=== PATIENT | male | born 1955 ===

== ENCOUNTER 2017-10-06 11:56 | Inpatient (IN) | payer MEDICARE ==
[~2017-10-06] VITALS: Ht 182.9 cm; Wt 124.9 kg
[2017-10-06] MEDS ORDERED: NALOXONE HCL 1MG/ML 2ML SYRINGE ONE (12:15)
[2017-10-06] MEDS ORDERED: SUCCINYLCHOLINE CHLORIDE 20 MG/ML 10ML VIAL IV ONE ×4 (12:19→14:15)
[2017-10-06] MEDS ORDERED: ETOMIDATE (2MG/ML) 20ML VIAL IV ONE ×4 (12:19→14:15)
[2017-10-06] MEDS ORDERED: MIDAZOLAM DRIP 50 mg/50mL 50 ML IV ONE (12:22)
[2017-10-06] MEDS ORDERED: NOREPINEPHRINE 16 MG/500ML KIT 500 ML IV ONE (12:23)
[2017-10-06] MEDS: MIDAZOLAM DRIP 50 mg/50mL 50 ML IV SCH ×2 (12:35→15:30)
[2017-10-06] MEDS ORDERED: PROPOFOL 100 ML IV ONE (12:44)
[2017-10-06] MEDS: PROPOFOL 100 ML IV SCH (12:49)
[2017-10-06] MEDS ORDERED: SODIUM CHLORIDE 0.9% 1,000 ML IV ONE ×3 (13:03→14:58)
[2017-10-06] MEDS ORDERED: cefTRIAXone 1GM/10ml IVPUSH 10 ML IV ONE (13:15)
[2017-10-06] MEDS ORDERED: CLINDAMYCIN 900MG IV 50 ML IV ONE (13:15)
[2017-10-06 13:43] LABS: Basophils # (auto) 0 uL; Basophils % (auto) 0.3 % (0.0-2.0); Eosinophils # (auto) 0 uL; Hematocrit 52.9 % (41.0-53.0); Hemoglobin 17.6 g/dL (13.5-17.5); Lymphocytes % (auto) 6.1 % (10.0-50.0); Mean Corpuscular Hgb Conc. 33.2 g/dL (32.0-36.0); Mean Corpuscular Volume 90.4 fL (80.0-100.0); Monocytes # (auto) 1.8 uL; Neutrophils # (auto) 13.8 uL; Neutrophils % (auto) 82.6 % (37.0-80.0); Platelet Count (auto) 263 10^3/uL (140-450); Red Blood Cells 5.86 10^6/uL (4.5-5.90); Red Cell Distribution Width 13.8 % (11.8-14.3); White Blood Cell 16.7 10^3/uL (4.4-10.8)
[2017-10-06 13:53] LABS: INR 1.12 (0.9-1.15); Partial Thromboplastin Time 28.3 sec (22.64-33.71); Prothrombin Time 12.2 sec (9.37-12.3)
[2017-10-06 14:03] LABS: Albumin 3.5 g/dL (3.4-5.0); BUN/Creatinine Ratio 12.2; Bilirubin, Total 0.7 mg/dL (0.2-1.0); Calcium 9.3 mg/dL (8.5-10.1); Lactic Acid w/Reflex 6.4 mmol/L (0.4-2.0); Potassium 5.1 mmol/L (3.5-5.1); Total Protein 8.2 g/dL (6.4-8.2)
[2017-10-06] MEDS ORDERED: LACTULOSE 20Gm/30ML SOLN PO PRN (15:30)
[2017-10-06] MEDS ORDERED: LACTULOSE 20Gm/30ML SOLN NG PRN (15:30)
[2017-10-06] MEDS ORDERED: PIPERACILLIN-TAZOB 2.25GM 50 ML IV ONE (15:30)
[2017-10-06] MEDS ORDERED: ALBUTEROL SULF 2.5 MG/0.5ML(0.5%) NEB SOLN NEB PRN (15:30)
[2017-10-06] MEDS ORDERED: MORPHINE SULFATE 8mg/ml INJ SDV IV PRN ×2 (15:30)
[2017-10-06] MEDS ORDERED: LORazepam 2MG/ML-1ML VIAL IV PRN ×2 (15:30→17:45)
[2017-10-06] MEDS ORDERED: NITROGLYCERIN 0.4 MG SL TAB SL PRN (15:30)
[2017-10-06] MEDS ORDERED: NALOXONE HCL 1MG/ML 2ML SYRINGE IV ONE (15:45)
[2017-10-06 16:25] LABS: Folate (Folic Acid) 5.91 ng/mL (5.38-24)
[2017-10-06] MEDS ORDERED: MORP60TA25 PO (16:25)
[2017-10-06] MEDS ORDERED: METO25TA62 PO (16:25)
[2017-10-06] MEDS ORDERED: AML5T PO (16:25)
[2017-10-06] MEDS ORDERED: MORP30TA PO (16:25)
[2017-10-06] MEDS: SODIUM CHLORIDE 0.9% 1,000 ML IV SCH (16:38)
[2017-10-06] MEDS: AZITHROMYCIN 500MG/ 250ML 250 ML IV SCH (18:09)
[2017-10-06 18:24] VITALS: BP 116/56
[2017-10-06] MEDS: ALBUTEROL SULF 2.5 MG/0.5ML(0.5%) NEB SOLN NEB SCH (18:30)
[2017-10-06] MEDS: IPRATROPIUM BROM 0.5 MG/2.5ML INH SOL NEB SCH (18:31)
[2017-10-06 18:32] LABS: Cholesterol 148 mg/dL (< 200); HDL Cholesterol 41 mg/dL (40-59); LDL Cholesterol 95 mg/dL (< 100); Triglycerides 250 mg/dL (< 150)
[2017-10-06 19:37] VITALS: BP 113/78
[2017-10-06] MEDS ORDERED: ACETAMINOPHEN 650 mg PER 20 mL UD GT ONE (19:45)
[2017-10-06] MEDS: LINEZOLID 600MG/300ML 300 ML IV SCH (20:00)
[2017-10-06 20:07] LABS: Alcohol, Urine < 3.0 mg/dL (0-5); Amphetamine Screen, Urine NEGATIVE (NEGATIVE); Barbiturate Scree,Urine NEGATIVE (NEGATIVE); Benzodiazephine Screen, Urine POSITIVE (NEGATIVE); Cannabinoid Screen, Urine POSITIVE (NEGATIVE); Cocaine Screen, Urine NEGATIVE (NEGATIVE); Opiate Scree,Urine POSITIVE (NEGATIVE); Phencyclidine Screen, Urine NEGATIVE (NEGATIVE)
[2017-10-06 20:10] LABS: Urine Bacteria FEW /hpf (None Seen); Urine Blood 2+ /uL (Negative); Urine Hyaline Cast FEW /lpf (0 - 2); Urine Mucus FEW (None Seen); Urine Specific Gravity 1.022 (1.001-1.035); Urine WBC 14 /hpf (0 - 3)
[2017-10-06 20:26] VITALS: BP 125/90
[2017-10-06] MEDS ORDERED: ENOXAPARIN SOD 120 MG/0.8 ML SYRINGE SC ONE (20:30)
[2017-10-06] MEDS: PIPERACILLIN-TAZOB 2.25GM 50 ML IV SCH (22:00)
[2017-10-06 22:36] VITALS: BP 120/79
[2017-10-07] VITALS (12 sets, daily range): BP systolic 101–158; BP diastolic 54–112
[2017-10-07] MEDS: IPRATROPIUM BROM 0.5 MG/2.5ML INH SOL NEB SCH ×4 (00:31→18:10)
[2017-10-07] MEDS: ALBUTEROL SULF 2.5 MG/0.5ML(0.5%) NEB SOLN NEB SCH ×4 (00:31→18:10)
[2017-10-07] MEDS: SODIUM CHLORIDE 0.9% 1,000 ML IV SCH ×2 (02:15→11:54)
[2017-10-07] MEDS: MORPHINE SULFATE 8mg/ml INJ SDV IV PRN ×2 (02:16→12:32)
[2017-10-07] MEDS: PIPERACILLIN-TAZOB 2.25GM 50 ML IV SCH ×4 (04:11→21:22)
[2017-10-07] MEDS ORDERED: IBUPROFEN 100MG/5ML ORAL SUSP 100 MG/5 ML UD GT ONE (05:45)
[2017-10-07] MEDS ORDERED: ACETAMINOPHEN 650 mg PER 20 mL UD GT ONE (06:00)
[2017-10-07 06:59] LABS: Basophils # (auto) 0.2 uL; Basophils % (auto) 1.4 % (0.0-2.0); Eosinophils # (auto) 0 uL; Eosinophils % (auto) 0.1 % (0.0-7.0); Lymphocytes # (auto) 1.5 uL; Lymphocytes % (auto) 10.7 % (10.0-50.0); Mean Corpuscular Hemoglobin 30.2 pg (28.0-32.0); Mean Corpuscular Hgb Conc. 33.9 g/dL (32.0-36.0); Monocytes # (auto) 1.3 uL; Monocytes % (auto) 8.9 % (0.0-12.0); Neutrophils # (auto) 11.4 uL; Neutrophils % (auto) 78.9 % (37.0-80.0); Platelet Count (auto) 212 10^3/uL (140-450); Red Blood Cells 5.28 10^6/uL (4.5-5.90); Red Cell Distribution Width 13.7 % (11.8-14.3); White Blood Cell 14.5 10^3/uL (4.4-10.8)
[2017-10-07 07:27] LABS: Albumin 2.9 g/dL (3.4-5.0); BUN/Creatinine Ratio 16.9; Bilirubin, Total 0.8 mg/dL (0.2-1.0); Calcium 9.2 mg/dL (8.5-10.1); Total Protein 6.7 g/dL (6.4-8.2)
[2017-10-07] MEDS: LINEZOLID 600MG/300ML 300 ML IV SCH ×2 (08:03→19:48)
[2017-10-07] MEDS: ENOXAPARIN SOD 40 MG/0.4 ML SYRINGE SC SCH (09:27)
[2017-10-07] MEDS: PANTOPRAZOLE 40 MG/10 ML VIAL IV SCH (09:27)
[2017-10-07] MEDS: ASPirin 81 mg TAB PEG SCH (09:44)
[2017-10-07] MEDS ORDERED: ENALAPRIL MALEATE 2.5 MG TAB NG SCH (10:00)
[2017-10-07] MEDS: PROPOFOL 100 ML IV SCH (12:28)
[2017-10-07] MEDS ORDERED: PIPERACILLIN-TAZOB 3.375GM 100 ML IV SCH (17:45)
[2017-10-07] MEDS: AZITHROMYCIN 500MG/ 250ML 250 ML IV SCH (18:13)
[2017-10-07] MEDS: PIPERACILLIN-TAZOB 3.375GM 100 ML IV SCH (21:29)
[2017-10-08] VITALS (54 sets, daily range): BP systolic 100–190; BP diastolic 59–101
[2017-10-08] MEDS: PIPERACILLIN-TAZOB 2.25GM 50 ML IV SCH (00:51)
[2017-10-08] MEDS: SODIUM CHLORIDE 0.9% 1,000 ML IV SCH ×3 (01:07→18:14)
[2017-10-08] MEDS ORDERED: ACETAMINOPHEN 650 mg PER 20 mL UD ONE (01:27)
[2017-10-08] MEDS ORDERED: ACETAMINOPHEN 650 mg PER 20 mL UD GT ONE (01:30)
[2017-10-08] MEDS: PIPERACILLIN-TAZOB 3.375GM 100 ML IV SCH ×4 (03:40→21:20)
[2017-10-08 05:22] LABS: Basophils # (auto) 0.1 uL; Basophils % (auto) 0.4 % (0.0-2.0); Eosinophils # (auto) 0 uL; Eosinophils % (auto) 0.2 % (0.0-7.0); Hematocrit 43.6 % (41.0-53.0); Hemoglobin 14.8 g/dL (13.5-17.5); Lymphocytes # (auto) 1.2 uL; Lymphocytes % (auto) 8.9 % (10.0-50.0); Mean Corpuscular Hemoglobin 30.3 pg (28.0-32.0); Mean Corpuscular Hgb Conc. 33.9 g/dL (32.0-36.0); Mean Corpuscular Volume 89.2 fL (80.0-100.0); Monocytes # (auto) 1.3 uL; Monocytes % (auto) 10.1 % (0.0-12.0); Neutrophils # (auto) 10.6 uL; Neutrophils % (auto) 80.4 % (37.0-80.0); Nucleated Red Blood Cells % 0.1 %; Platelet Count (auto) 214 10^3/uL (140-450); Red Blood Cells 4.89 10^6/uL (4.5-5.90); Red Cell Distribution Width 13.4 % (11.8-14.3); White Blood Cell 13.2 10^3/uL (4.4-10.8)
[2017-10-08 05:40] LABS: BUN/Creatinine Ratio 14.4; Potassium 3.9 mmol/L (3.5-5.1)
[2017-10-08] MEDS: ALBUTEROL SULF 2.5 MG/0.5ML(0.5%) NEB SOLN NEB SCH ×3 (06:00→18:27)
[2017-10-08] MEDS: IPRATROPIUM BROM 0.5 MG/2.5ML INH SOL NEB SCH ×3 (06:00→18:27)
[2017-10-08] MEDS: ASPirin 81 mg TAB PEG SCH (09:59)
[2017-10-08] MEDS: PANTOPRAZOLE 40 MG/10 ML VIAL IV SCH (09:59)
[2017-10-08] MEDS: ENOXAPARIN SOD 40 MG/0.4 ML SYRINGE SC SCH (09:59)
[2017-10-08] MEDS: MIDAZOLAM DRIP 50 mg/50mL 50 ML IV SCH ×3 (13:23→22:48)
[2017-10-08] MEDS: PROPOFOL 100 ML IV SCH (14:04)
[2017-10-08] MEDS: MORPHINE SULFATE 8mg/ml INJ SDV IV PRN (22:48)
[2017-10-09] VITALS (102 sets, daily range): BP systolic 115–182; BP diastolic 59–114
[2017-10-09] MEDS: IPRATROPIUM BROM 0.5 MG/2.5ML INH SOL NEB SCH ×4 (00:21→18:45)
[2017-10-09] MEDS: ALBUTEROL SULF 2.5 MG/0.5ML(0.5%) NEB SOLN NEB SCH ×4 (00:21→18:45)
[2017-10-09] MEDS: hydrALAZINE HCL 20 MG/ML VL IV PRN ×3 (00:50→14:39)
[2017-10-09] MEDS: MORPHINE SULFATE 8mg/ml INJ SDV IV PRN (03:11)
[2017-10-09] MEDS ORDERED: ENALAPRILAT 1.25 MG/ML-1ML VIAL IV ONE (03:30)
[2017-10-09 03:34] LABS: Basophils # (auto) 0.1 uL; Basophils % (auto) 0.6 % (0.0-2.0); Eosinophils # (auto) 0 uL; Eosinophils % (auto) 0.3 % (0.0-7.0); Hematocrit 44.3 % (41.0-53.0); Hemoglobin 15.1 g/dL (13.5-17.5); Lymphocytes # (auto) 1.5 uL; Lymphocytes % (auto) 12.7 % (10.0-50.0); Mean Corpuscular Hemoglobin 30.4 pg (28.0-32.0); Mean Corpuscular Hgb Conc. 34.2 g/dL (32.0-36.0); Mean Corpuscular Volume 88.8 fL (80.0-100.0); Monocytes # (auto) 1.3 uL; Neutrophils # (auto) 8.9 uL; Neutrophils % (auto) 75.4 % (37.0-80.0); Platelet Count (auto) 187 10^3/uL (140-450); Red Blood Cells 4.99 10^6/uL (4.5-5.90); Red Cell Distribution Width 13.6 % (11.8-14.3); White Blood Cell 11.7 10^3/uL (4.4-10.8)
[2017-10-09] MEDS: PIPERACILLIN-TAZOB 3.375GM 100 ML IV SCH ×4 (03:39→22:00)
[2017-10-09 03:45] LABS: BUN/Creatinine Ratio 15.5; Calcium 8.8 mg/dL (8.5-10.1); Potassium 3.9 mmol/L (3.5-5.1)
[2017-10-09] MEDS: SODIUM CHLORIDE 0.9% 1,000 ML IV SCH ×2 (04:15→10:06)
[2017-10-09] MEDS ORDERED: hydrALAZINE HCL 20 MG/ML VL IV SCH (06:00)
[2017-10-09] MEDS: fentaNYL Drip 2500mCg/250mlNS 250 ML IV SCH ×2 (07:35→10:42)
[2017-10-09] MEDS: PROPOFOL 100 ML IV SCH (08:38)
[2017-10-09] MEDS: METOPROLOL TARTRATE 25 MG TAB PO SCH ×2 (10:00→22:00)
[2017-10-09] MEDS: PANTOPRAZOLE 40 MG/10 ML VIAL IV SCH (10:05)
[2017-10-09] MEDS: MIDAZOLAM DRIP 50 mg/50mL 50 ML IV SCH ×2 (10:05→15:16)
[2017-10-09] MEDS: ASPirin 81 mg TAB PEG SCH (10:05)
[2017-10-09] MEDS: ENOXAPARIN SOD 40 MG/0.4 ML SYRINGE SC SCH (10:05)
[2017-10-09] MEDS ORDERED: Fibersource Hn 1 Liter GT SCH (12:15)
[2017-10-09] MEDS: ATORVASTATIN 20 MG TAB PO SCH (22:00)
[2017-10-10] VITALS (100 sets, daily range): BP systolic 115–180; BP diastolic 66–114
[2017-10-10] MEDS: SODIUM CHLORIDE 0.9% 1,000 ML IV SCH ×3 (00:15→20:15)
[2017-10-10] MEDS: ALBUTEROL SULF 2.5 MG/0.5ML(0.5%) NEB SOLN NEB SCH ×4 (00:32→18:48)
[2017-10-10] MEDS: IPRATROPIUM BROM 0.5 MG/2.5ML INH SOL NEB SCH ×4 (00:32→18:47)
[2017-10-10 03:55] LABS: Basophils # (auto) 0.1 uL; Basophils % (auto) 0.6 % (0.0-2.0); Eosinophils # (auto) 0.1 uL; Eosinophils % (auto) 1.2 % (0.0-7.0); Hematocrit 46.5 % (41.0-53.0); Hemoglobin 15.7 g/dL (13.5-17.5); Lymphocytes # (auto) 1.2 uL; Mean Corpuscular Hemoglobin 30.1 pg (28.0-32.0); Mean Corpuscular Hgb Conc. 33.8 g/dL (32.0-36.0); Mean Corpuscular Volume 89.1 fL (80.0-100.0); Monocytes # (auto) 1.3 uL; Monocytes % (auto) 13.7 % (0.0-12.0); Neutrophils # (auto) 7.1 uL; Neutrophils % (auto) 72.5 % (37.0-80.0); Nucleated Red Blood Cells % 0.2 %; Platelet Count (auto) 226 10^3/uL (140-450); Red Blood Cells 5.22 10^6/uL (4.5-5.90); Red Cell Distribution Width 13.3 % (11.8-14.3); White Blood Cell 9.8 10^3/uL (4.4-10.8)
[2017-10-10 03:57] LABS: BUN/Creatinine Ratio 17.6; Potassium 3.7 mmol/L (3.5-5.1)
[2017-10-10] MEDS: PIPERACILLIN-TAZOB 3.375GM 100 ML IV SCH ×4 (04:00→22:00)
[2017-10-10] MEDS: MIDAZOLAM DRIP 50 mg/50mL 50 ML IV SCH ×3 (06:36→22:41)
[2017-10-10] MEDS: PANTOPRAZOLE 40 MG/10 ML VIAL IV SCH (10:37)
[2017-10-10] MEDS: ASPirin 81 mg TAB PEG SCH (10:37)
[2017-10-10] MEDS: METOPROLOL TARTRATE 25 MG TAB PO SCH ×3 (10:38→23:00)
[2017-10-10] MEDS: ENOXAPARIN SOD 40 MG/0.4 ML SYRINGE SC SCH (10:38)
[2017-10-10] MEDS: PROPOFOL 100 ML IV SCH (14:04)
[2017-10-10] MEDS: fentaNYL Drip 2500mCg/250mlNS 250 ML IV SCH (16:31)
[2017-10-10] MEDS: ATORVASTATIN 20 MG TAB PO SCH (22:00)
[2017-10-11] VITALS (101 sets, daily range): BP systolic 110–163; BP diastolic 61–125
[2017-10-11] MEDS: IPRATROPIUM BROM 0.5 MG/2.5ML INH SOL NEB SCH ×5 (00:21→23:57)
[2017-10-11] MEDS: ALBUTEROL SULF 2.5 MG/0.5ML(0.5%) NEB SOLN NEB SCH ×5 (00:21→23:57)
[2017-10-11] MEDS: MIDAZOLAM DRIP 50 mg/50mL 50 ML IV SCH ×2 (01:44→01:45)
[2017-10-11 03:51] LABS: Basophils # (auto) 0 uL; Basophils % (auto) 0.5 % (0.0-2.0); Eosinophils # (auto) 0.4 uL; Eosinophils % (auto) 4.1 % (0.0-7.0); Hematocrit 44.6 % (41.0-53.0); Lymphocytes # (auto) 1.2 uL; Lymphocytes % (auto) 12.9 % (10.0-50.0); Mean Corpuscular Hemoglobin 30.2 pg (28.0-32.0); Mean Corpuscular Hgb Conc. 33.8 g/dL (32.0-36.0); Mean Corpuscular Volume 89.5 fL (80.0-100.0); Monocytes # (auto) 1.3 uL; Monocytes % (auto) 13.9 % (0.0-12.0); Neutrophils # (auto) 6.2 uL; Neutrophils % (auto) 68.6 % (37.0-80.0); Nucleated Red Blood Cells % 0.1 %; Platelet Count (auto) 214 10^3/uL (140-450); Red Blood Cells 4.98 10^6/uL (4.5-5.90); Red Cell Distribution Width 13.1 % (11.8-14.3); White Blood Cell 9.1 10^3/uL (4.4-10.8)
[2017-10-11] MEDS: PIPERACILLIN-TAZOB 3.375GM 100 ML IV SCH ×4 (04:00→22:28)
[2017-10-11 04:14] LABS: BUN/Creatinine Ratio 17.6; Calcium 8.8 mg/dL (8.5-10.1); Potassium 3.7 mmol/L (3.5-5.1)
[2017-10-11] MEDS: SODIUM CHLORIDE 0.9% 1,000 ML IV SCH ×2 (06:15→15:55)
[2017-10-11] MEDS: PANTOPRAZOLE 40 MG/10 ML VIAL IV SCH (10:30)
[2017-10-11] MEDS: ENOXAPARIN SOD 40 MG/0.4 ML SYRINGE SC SCH (10:30)
[2017-10-11] MEDS: ASPirin 81 mg TAB PEG SCH (10:30)
[2017-10-11] MEDS: PROPOFOL 100 ML IV SCH (14:00)
[2017-10-11] MEDS: ATORVASTATIN 20 MG TAB PO SCH (22:28)
[2017-10-11] MEDS: METOPROLOL TARTRATE 25 MG TAB PO SCH (22:28)
[2017-10-12] VITALS (74 sets, daily range): BP systolic 122–184; BP diastolic 58–106
[2017-10-12] MEDS: SODIUM CHLORIDE 0.9% 1,000 ML IV SCH ×3 (02:15→22:15)
[2017-10-12 03:12] LABS: Basophils # (auto) 0.1 uL; Basophils % (auto) 0.5 % (0.0-2.0); Eosinophils # (auto) 0.3 uL; Eosinophils % (auto) 2.4 % (0.0-7.0); Hematocrit 44.8 % (41.0-53.0); Hemoglobin 15.2 g/dL (13.5-17.5); Lymphocytes # (auto) 1.1 uL; Lymphocytes % (auto) 9.1 % (10.0-50.0); Mean Corpuscular Hemoglobin 30.1 pg (28.0-32.0); Mean Corpuscular Hgb Conc. 33.9 g/dL (32.0-36.0); Mean Corpuscular Volume 89.1 fL (80.0-100.0); Monocytes # (auto) 1.3 uL; Monocytes % (auto) 11.2 % (0.0-12.0); Neutrophils # (auto) 8.9 uL; Neutrophils % (auto) 76.8 % (37.0-80.0); Platelet Count (auto) 242 10^3/uL (140-450); Red Blood Cells 5.03 10^6/uL (4.5-5.90); Red Cell Distribution Width 13.2 % (11.8-14.3); White Blood Cell 11.6 10^3/uL (4.4-10.8)
[2017-10-12 03:22] LABS: BUN/Creatinine Ratio 20.2; Calcium 9.1 mg/dL (8.5-10.1); Potassium 3.8 mmol/L (3.5-5.1)
[2017-10-12] MEDS: PIPERACILLIN-TAZOB 3.375GM 100 ML IV SCH ×4 (04:00→22:00)
[2017-10-12] MEDS: fentaNYL Drip 2500mCg/250mlNS 250 ML IV SCH (04:00)
[2017-10-12] MEDS: ALBUTEROL SULF 2.5 MG/0.5ML(0.5%) NEB SOLN NEB SCH ×3 (06:50→18:29)
[2017-10-12] MEDS: IPRATROPIUM BROM 0.5 MG/2.5ML INH SOL NEB SCH ×3 (06:50→18:29)
[2017-10-12] MEDS: hydrALAZINE HCL 20 MG/ML VL IV PRN (08:40)
[2017-10-12] MEDS: PANTOPRAZOLE 40 MG/10 ML VIAL IV SCH (09:57)
[2017-10-12] MEDS: ENOXAPARIN SOD 40 MG/0.4 ML SYRINGE SC SCH (09:57)
[2017-10-12] MEDS: ASPirin 81 mg TAB PEG SCH (09:57)
[2017-10-12] MEDS: METOPROLOL TARTRATE 25 MG TAB PO SCH ×3 (09:58→23:00)
[2017-10-12] MEDS: MIDAZOLAM DRIP 50 mg/50mL 50 ML IV SCH (11:26)
[2017-10-12] MEDS: PROPOFOL 100 ML IV SCH (11:26)
[2017-10-12] MEDS: ATORVASTATIN 20 MG TAB PO SCH (22:00)
[2017-10-13] VITALS (76 sets, daily range): BP systolic 110–168; BP diastolic 69–104
[2017-10-13] MEDS: ALBUTEROL SULF 2.5 MG/0.5ML(0.5%) NEB SOLN NEB SCH ×4 (00:24→18:33)
[2017-10-13] MEDS: IPRATROPIUM BROM 0.5 MG/2.5ML INH SOL NEB SCH ×4 (00:24→18:32)
[2017-10-13] MEDS: PIPERACILLIN-TAZOB 3.375GM 100 ML IV SCH (04:00)
[2017-10-13] MEDS: fentaNYL Drip 2500mCg/250mlNS 250 ML IV SCH (07:35)
[2017-10-13] MEDS: ENOXAPARIN SOD 40 MG/0.4 ML SYRINGE SC SCH (10:09)
[2017-10-13] MEDS: FLUCONAZOLE 200MG/100ML 100 ML IV SCH (10:09)
[2017-10-13] MEDS: PANTOPRAZOLE 40 MG/10 ML VIAL IV SCH (10:09)
[2017-10-13] MEDS: ASPirin 81 mg TAB PEG SCH (10:09)
[2017-10-13] MEDS: METOPROLOL TARTRATE 25 MG TAB PO SCH ×2 (10:09→21:58)
[2017-10-13] MEDS: MIDAZOLAM DRIP 50 mg/50mL 50 ML IV SCH ×2 (14:04→19:22)
[2017-10-13] MEDS: PROPOFOL 100 ML IV SCH (14:04)
[2017-10-13] MEDS: SODIUM CHLORIDE 0.9% 1,000 ML IV SCH ×2 (14:43→19:27)
[2017-10-13] MEDS: ceFAZolin 1GM 2 GM in D5W 5% 100 ML IV SCH ×2 (14:44→21:58)
[2017-10-13] MEDS ORDERED: SUCCINYLCHOLINE CHLORIDE 20 MG/ML 10ML VIAL IV ONE (16:25)
[2017-10-13] MEDS: ATORVASTATIN 20 MG TAB PO SCH (21:58)
[2017-10-14] VITALS (94 sets, daily range): BP systolic 123–170; BP diastolic 68–104
[2017-10-14] MEDS: IPRATROPIUM BROM 0.5 MG/2.5ML INH SOL NEB SCH ×4 (00:34→18:03)
[2017-10-14] MEDS: ALBUTEROL SULF 2.5 MG/0.5ML(0.5%) NEB SOLN NEB SCH ×4 (00:34→18:02)
[2017-10-14] MEDS: SODIUM CHLORIDE 0.9% 1,000 ML IV SCH (02:35)
[2017-10-14 04:42] LABS: Basophils # (auto) 0.1 uL; Basophils % (auto) 0.6 % (0.0-2.0); Eosinophils # (auto) 0.5 uL; Eosinophils % (auto) 3.6 % (0.0-7.0); Hematocrit 45.1 % (41.0-53.0); Lymphocytes # (auto) 1.4 uL; Lymphocytes % (auto) 9.8 % (10.0-50.0); Mean Corpuscular Hemoglobin 29.7 pg (28.0-32.0); Mean Corpuscular Hgb Conc. 33.2 g/dL (32.0-36.0); Mean Corpuscular Volume 89.4 fL (80.0-100.0); Monocytes # (auto) 1.7 uL; Monocytes % (auto) 11.4 % (0.0-12.0); Neutrophils # (auto) 10.8 uL; Neutrophils % (auto) 74.6 % (37.0-80.0); Platelet Count (auto) 277 10^3/uL (140-450); Red Blood Cells 5.04 10^6/uL (4.5-5.90); Red Cell Distribution Width 13.6 % (11.8-14.3); White Blood Cell 14.5 10^3/uL (4.4-10.8)
[2017-10-14 05:01] LABS: BUN/Creatinine Ratio 22.2; Potassium 3.6 mmol/L (3.5-5.1)
[2017-10-14 05:04] LABS: Calcium 8.9 mg/dL (8.5-10.1)
[2017-10-14] MEDS: MIDAZOLAM DRIP 50 mg/50mL 50 ML IV SCH ×2 (05:27→19:34)
[2017-10-14] MEDS: ceFAZolin 1GM 2 GM in D5W 5% 100 ML IV SCH ×3 (05:27→22:00)
[2017-10-14] MEDS: hydrALAZINE HCL 20 MG/ML VL IV PRN (05:56)
[2017-10-14] MEDS: fentaNYL Drip 2500mCg/250mlNS 250 ML IV SCH (07:35)
[2017-10-14] MEDS: PANTOPRAZOLE 40 MG/10 ML VIAL IV SCH (10:37)
[2017-10-14] MEDS: ASPirin 81 mg TAB PEG SCH (10:37)
[2017-10-14] MEDS: METOPROLOL TARTRATE 25 MG TAB PO SCH ×2 (10:37→22:00)
[2017-10-14] MEDS: FLUCONAZOLE 200MG/100ML 100 ML IV SCH (10:37)
[2017-10-14] MEDS: ENOXAPARIN SOD 40 MG/0.4 ML SYRINGE SC SCH (10:37)
[2017-10-14] MEDS: PROPOFOL 100 ML IV SCH (14:04)
[2017-10-14] MEDS: ATORVASTATIN 20 MG TAB PO SCH (22:00)
[2017-10-14] MEDS ORDERED: DEXTROSE (50%) 50ML SYRG IV PRN (22:15)
[2017-10-15] VITALS (108 sets, daily range): BP systolic 92–170; BP diastolic 67–101
[2017-10-15] MEDS: ALBUTEROL SULF 2.5 MG/0.5ML(0.5%) NEB SOLN NEB SCH ×4 (00:07→18:19)
[2017-10-15] MEDS: IPRATROPIUM BROM 0.5 MG/2.5ML INH SOL NEB SCH ×4 (00:07→18:19)
[2017-10-15] MEDS: hydrALAZINE HCL 20 MG/ML VL IV PRN (02:54)
[2017-10-15 04:25] LABS: Basophils # (auto) 0.1 uL; Basophils % (auto) 0.5 % (0.0-2.0); Eosinophils # (auto) 0.6 uL; Eosinophils % (auto) 4.7 % (0.0-7.0); Hematocrit 43.4 % (41.0-53.0); Hemoglobin 14.5 g/dL (13.5-17.5); Lymphocytes # (auto) 1.2 uL; Lymphocytes % (auto) 10.2 % (10.0-50.0); Mean Corpuscular Hemoglobin 29.8 pg (28.0-32.0); Mean Corpuscular Hgb Conc. 33.4 g/dL (32.0-36.0); Mean Corpuscular Volume 89.4 fL (80.0-100.0); Monocytes # (auto) 1.3 uL; Monocytes % (auto) 11.2 % (0.0-12.0); Neutrophils # (auto) 8.8 uL; Neutrophils % (auto) 73.4 % (37.0-80.0); Nucleated Red Blood Cells % 0.1 %; Platelet Count (auto) 281 10^3/uL (140-450); Red Blood Cells 4.85 10^6/uL (4.5-5.90); Red Cell Distribution Width 13.3 % (11.8-14.3)
[2017-10-15 04:54] LABS: BUN/Creatinine Ratio 19.2; Calcium 8.8 mg/dL (8.5-10.1); Potassium 3.4 mmol/L (3.5-5.1)
[2017-10-15] MEDS: InsuLIN REG 1unit/0.01ml Soln (100units/ml) SC SCH ×4 (06:00→18:00)
[2017-10-15] MEDS: ceFAZolin 1GM 2 GM in D5W 5% 100 ML IV SCH ×3 (06:10→21:00)
[2017-10-15] MEDS: ACCU-CHEK COMFORT CURVE STRIP VI SCH ×4 (06:10→18:08)
[2017-10-15] MEDS ORDERED: fentaNYL Drip 2500mCg/250mlNS 250 ML IV ONE (06:35)
[2017-10-15] MEDS: fentaNYL Drip 2500mCg/250mlNS 250 ML IV SCH (06:43)
[2017-10-15] MEDS: MIDAZOLAM DRIP 50 mg/50mL 50 ML IV SCH ×2 (07:23→23:15)
[2017-10-15] MEDS: POTASSIUM CHL 20MEQ/100ML 100 ML IV SCH ×2 (08:22→10:32)
[2017-10-15] MEDS: METOPROLOL TARTRATE 25 MG TAB PO SCH ×2 (10:33→20:59)
[2017-10-15] MEDS: ENOXAPARIN SOD 40 MG/0.4 ML SYRINGE SC SCH (10:33)
[2017-10-15] MEDS: ASPirin 81 mg TAB PEG SCH (10:33)
[2017-10-15] MEDS: PANTOPRAZOLE 40 MG/10 ML VIAL IV SCH (10:33)
[2017-10-15] MEDS: FLUCONAZOLE 200MG/100ML 100 ML IV SCH (10:33)
[2017-10-15] MEDS: PROPOFOL 100 ML IV SCH (14:04)
[2017-10-15] MEDS: ATORVASTATIN 20 MG TAB PO SCH (20:59)
[2017-10-16] VITALS (90 sets, daily range): BP systolic 128–189; BP diastolic 77–116
[2017-10-16] MEDS: ALBUTEROL SULF 2.5 MG/0.5ML(0.5%) NEB SOLN NEB SCH ×4 (00:16→18:06)
[2017-10-16] MEDS: IPRATROPIUM BROM 0.5 MG/2.5ML INH SOL NEB SCH ×4 (00:16→18:06)
[2017-10-16] MEDS: ACCU-CHEK COMFORT CURVE STRIP VI SCH ×4 (00:18→17:56)
[2017-10-16 04:14] LABS: Basophils # (auto) 0.1 uL; Basophils % (auto) 0.6 % (0.0-2.0); Eosinophils # (auto) 0.4 uL; Eosinophils % (auto) 3.4 % (0.0-7.0); Hematocrit 44.2 % (41.0-53.0); Hemoglobin 14.6 g/dL (13.5-17.5); Lymphocytes # (auto) 1.1 uL; Lymphocytes % (auto) 9.6 % (10.0-50.0); Mean Corpuscular Hemoglobin 29.5 pg (28.0-32.0); Mean Corpuscular Hgb Conc. 33.1 g/dL (32.0-36.0); Monocytes # (auto) 1.1 uL; Monocytes % (auto) 9.8 % (0.0-12.0); Neutrophils # (auto) 8.8 uL; Neutrophils % (auto) 76.6 % (37.0-80.0); Nucleated Red Blood Cells % 0.1 %; Platelet Count (auto) 324 10^3/uL (140-450); Red Blood Cells 4.97 10^6/uL (4.5-5.90); Red Cell Distribution Width 13.3 % (11.8-14.3); White Blood Cell 11.4 10^3/uL (4.4-10.8)
[2017-10-16 04:19] LABS: INR 0.99 (0.9-1.15); Partial Thromboplastin Time 26.4 sec (22.64-33.71); Prothrombin Time 10.8 sec (9.37-12.3)
[2017-10-16 04:29] LABS: Calcium 9.1 mg/dL (8.5-10.1); Potassium 3.8 mmol/L (3.5-5.1)
[2017-10-16 04:32] LABS: BUN/Creatinine Ratio 20.3
[2017-10-16] MEDS: ceFAZolin 1GM 2 GM in D5W 5% 100 ML IV SCH ×3 (06:11→21:45)
[2017-10-16] MEDS: InsuLIN REG 1unit/0.01ml Soln (100units/ml) SC SCH ×4 (06:11→17:56)
[2017-10-16] MEDS: fentaNYL Drip 2500mCg/250mlNS 250 ML IV SCH (07:35)
[2017-10-16] MEDS: PANTOPRAZOLE 40 MG/10 ML VIAL IV SCH (09:57)
[2017-10-16] MEDS: ENOXAPARIN SOD 40 MG/0.4 ML SYRINGE SC SCH (10:00)
[2017-10-16] MEDS ORDERED: OPTISON 3ml Vial for INJ IV ONE (10:45)
[2017-10-16] MEDS: FLUCONAZOLE 200MG/100ML 100 ML IV SCH (10:45)
[2017-10-16] MEDS ORDERED: amLODIPine BESYLATE 5 MG TAB PO ONE (12:00)
[2017-10-16] MEDS: MIDAZOLAM DRIP 50 mg/50mL 50 ML IV SCH (12:50)
[2017-10-16] MEDS ORDERED: HYDROmorphone HCL 2 MG/ML VL ONE (12:58)
[2017-10-16] MEDS ORDERED: MIDAZOLAM HCL 1MG/1ML-2 ML VIAL ONE (12:59)
[2017-10-16] MEDS ORDERED: fentaNYL CITRATE 5 ML ONE (12:59)
[2017-10-16] MEDS ORDERED: fentaNYL CITRATE 100 MCG/2 ML VL ONE (12:59)
[2017-10-16] MEDS: PROPOFOL 100 ML IV SCH (14:04)
[2017-10-16] MEDS: ASPirin 81 mg TAB PEG SCH (14:36)
[2017-10-16] MEDS: ATORVASTATIN 20 MG TAB PO SCH (21:45)
[2017-10-16] MEDS: hydrALAZINE HCL 20 MG/ML VL IV PRN (22:07)
[2017-10-17] VITALS (100 sets, daily range): BP systolic 143–198; BP diastolic 53–115
[2017-10-17] MEDS: IPRATROPIUM BROM 0.5 MG/2.5ML INH SOL NEB SCH ×4 (00:33→17:58)
[2017-10-17] MEDS: ALBUTEROL SULF 2.5 MG/0.5ML(0.5%) NEB SOLN NEB SCH ×4 (00:33→17:58)
[2017-10-17 04:15] LABS: Basophils # (auto) 0.1 uL; Basophils % (auto) 0.4 % (0.0-2.0); Eosinophils # (auto) 0.1 uL; Eosinophils % (auto) 0.8 % (0.0-7.0); Hematocrit 44.9 % (41.0-53.0); Hemoglobin 15.4 g/dL (13.5-17.5); Lymphocytes # (auto) 0.9 uL; Lymphocytes % (auto) 5.6 % (10.0-50.0); Mean Corpuscular Hemoglobin 30.5 pg (28.0-32.0); Mean Corpuscular Hgb Conc. 34.3 g/dL (32.0-36.0); Mean Corpuscular Volume 88.9 fL (80.0-100.0); Monocytes # (auto) 1.2 uL; Monocytes % (auto) 7.8 % (0.0-12.0); Neutrophils # (auto) 13.4 uL; Neutrophils % (auto) 85.4 % (37.0-80.0); Nucleated Red Blood Cells % 0.2 %; Platelet Count (auto) 372 10^3/uL (140-450); Red Blood Cells 5.06 10^6/uL (4.5-5.90); Red Cell Distribution Width 13.3 % (11.8-14.3); White Blood Cell 15.6 10^3/uL (4.4-10.8)
[2017-10-17 04:36] LABS: BUN/Creatinine Ratio 19.2; Calcium 9.5 mg/dL (8.5-10.1); Potassium 4.6 mmol/L (3.5-5.1)
[2017-10-17] MEDS: ACCU-CHEK COMFORT CURVE STRIP VI SCH ×4 (04:51→17:30)
[2017-10-17] MEDS: hydrALAZINE HCL 20 MG/ML VL IV PRN ×3 (04:52→17:15)
[2017-10-17] MEDS: ceFAZolin 1GM 2 GM in D5W 5% 100 ML IV SCH ×3 (05:58→22:30)
[2017-10-17] MEDS: InsuLIN REG 1unit/0.01ml Soln (100units/ml) SC SCH ×4 (05:59→17:30)
[2017-10-17] MEDS: fentaNYL Drip 2500mCg/250mlNS 250 ML IV SCH ×2 (07:35→08:48)
[2017-10-17] MEDS: FLUCONAZOLE 200MG/100ML 100 ML IV SCH (09:50)
[2017-10-17] MEDS: PANTOPRAZOLE 40 MG/10 ML VIAL IV SCH (09:50)
[2017-10-17] MEDS: ENOXAPARIN SOD 40 MG/0.4 ML SYRINGE SC SCH (09:50)
[2017-10-17] MEDS: ASPirin 81 mg TAB PEG SCH (09:51)
[2017-10-17] MEDS ORDERED: amLODIPine BESYLATE 5 MG TAB PO SCH (10:00)
[2017-10-17] MEDS ORDERED: amLODIPine BESYLATE 5 MG TAB PO ONE (14:00)
[2017-10-17] MEDS: MIDAZOLAM DRIP 50 mg/50mL 50 ML IV SCH (14:04)
[2017-10-17] MEDS: PROPOFOL 100 ML IV SCH (14:04)
[2017-10-17] MEDS: ACETAMINOPHEN 650 mg PER 20 mL UD GT PRN (16:24)
[2017-10-17] MEDS: hydrALAZINE HCL 25 MG TAB PO SCH (22:30)
[2017-10-17] MEDS: ATORVASTATIN 20 MG TAB PO SCH (22:30)
[2017-10-18] VITALS (94 sets, daily range): BP systolic 137–215; BP diastolic 62–110
[2017-10-18] MEDS: ALBUTEROL SULF 2.5 MG/0.5ML(0.5%) NEB SOLN NEB SCH ×4 (00:05→18:16)
[2017-10-18] MEDS: IPRATROPIUM BROM 0.5 MG/2.5ML INH SOL NEB SCH ×4 (00:05→18:16)
[2017-10-18] MEDS: ACCU-CHEK COMFORT CURVE STRIP VI SCH ×4 (00:30→18:00)
[2017-10-18] MEDS: InsuLIN REG 1unit/0.01ml Soln (100units/ml) SC SCH ×4 (00:30→18:00)
[2017-10-18] MEDS: hydrALAZINE HCL 20 MG/ML VL IV PRN (01:00)
[2017-10-18 03:50] LABS: Basophils # (auto) 0.1 uL; Basophils % (auto) 0.4 % (0.0-2.0); Eosinophils # (auto) 0.2 uL; Eosinophils % (auto) 1.1 % (0.0-7.0); Hematocrit 47.5 % (41.0-53.0); Hemoglobin 16.2 g/dL (13.5-17.5); Lymphocytes # (auto) 1.1 uL; Lymphocytes % (auto) 7.3 % (10.0-50.0); Mean Corpuscular Volume 88.3 fL (80.0-100.0); Monocytes # (auto) 1.7 uL; Monocytes % (auto) 11.1 % (0.0-12.0); Neutrophils # (auto) 12.2 uL; Neutrophils % (auto) 80.1 % (37.0-80.0); Platelet Count (auto) 415 10^3/uL (140-450); Red Blood Cells 5.38 10^6/uL (4.5-5.90); Red Cell Distribution Width 13.3 % (11.8-14.3); White Blood Cell 15.2 10^3/uL (4.4-10.8)
[2017-10-18 04:12] LABS: BUN/Creatinine Ratio 20.8; Calcium 9.7 mg/dL (8.5-10.1); Potassium 4.2 mmol/L (3.5-5.1)
[2017-10-18] MEDS ORDERED: ENALAPRILAT 1.25 MG/ML-1ML VIAL IV ONE (05:45)
[2017-10-18] MEDS: ACETAMINOPHEN 650 mg PER 20 mL UD GT PRN (06:05)
[2017-10-18] MEDS: ceFAZolin 1GM 2 GM in D5W 5% 100 ML IV SCH ×3 (06:13→22:00)
[2017-10-18] MEDS: PANTOPRAZOLE 40 MG/10 ML VIAL IV SCH (09:07)
[2017-10-18] MEDS: hydrALAZINE HCL 25 MG TAB PO SCH ×2 (09:08→22:00)
[2017-10-18] MEDS: FLUCONAZOLE 200MG/100ML 100 ML IV SCH (09:08)
[2017-10-18] MEDS: ASPirin 81 mg TAB PEG SCH (09:08)
[2017-10-18] MEDS: ENOXAPARIN SOD 40 MG/0.4 ML SYRINGE SC SCH (09:08)
[2017-10-18] MEDS ORDERED: amLODIPine BESYLATE 5 MG TAB PO SCH (10:00)
[2017-10-18] MEDS: MIDAZOLAM DRIP 50 mg/50mL 50 ML IV SCH (13:54)
[2017-10-18] MEDS: PROPOFOL 100 ML IV SCH (13:54)
[2017-10-18 21:15] LABS: Hematocrit 48.6 % (41.0-53.0); Hemoglobin 16.3 g/dL (13.5-17.5)
[2017-10-18] MEDS: ATORVASTATIN 20 MG TAB PO SCH (22:00)
[2017-10-19] VITALS (8 sets, daily range): BP systolic 122–135; BP diastolic 62–78
[2017-10-19] MEDS: ACCU-CHEK COMFORT CURVE STRIP VI SCH
[2017-10-19] MEDS: InsuLIN REG 1unit/0.01ml Soln (100units/ml) SC SCH
[2017-10-19] MEDS: ALBUTEROL SULF 2.5 MG/0.5ML(0.5%) NEB SOLN NEB SCH (00:07)
[2017-10-19] MEDS: IPRATROPIUM BROM 0.5 MG/2.5ML INH SOL NEB SCH (00:07)
== END 2017-10-19 01:20 | disposition short-term general hospital (02) | DRG 4 ==
LOC: EDUNIT# 11:56 → ER 11:56 → TELE 11:57 → ICU WEST 10-08 11:26
PROVIDERS: ADMIT Internal Medicine; ATTEND Internal Medicine Pulmonary Disease
PROC: 02HV33Z Insertion of Infusion Device into Superior Vena Cava, Percutaneous Approach (ICD-10-PCS; 2017-10-06)
PROC: 5A1955Z Respiratory Ventilation, Greater than 96 Consecutive Hours (ICD-10-PCS; 2017-10-12)
PROC: 0BH17EZ Insertion of Endotracheal Airway into Trachea, Via Natural or Artificial Opening (ICD-10-PCS; 2017-10-12)
PROC: 0B110F4 Bypass Trachea to Cutaneous with Tracheostomy Device, Open Approach (ICD-10-PCS; principal; 2017-10-16 12:55)
DX: A41.9 Sepsis, unspecified organism (principal); G93.5 Compression of brain; I21.4 Non-ST elevation (NSTEMI) myocardial infarction; I61.1 Nontraumatic intracerebral hemorrhage in hemisphere, cortical; N17.0 Acute kidney failure with tubular necrosis; J69.0 Pneumonitis due to inhalation of food and vomit; G93.41 Metabolic encephalopathy; J96.00 Acute respiratory failure, unspecified whether with hypoxia or hypercapnia; E87.1 Hypo-osmolality and hyponatremia; E44.1 Mild protein-calorie malnutrition; J98.11 Atelectasis; Z99.11 Dependence on respirator [ventilator] status; E66.01 Morbid (severe) obesity due to excess calories; G89.4 Chronic pain syndrome; I12.9 Hypertensive chronic kidney disease with stage 1 through stage 4 chronic kidney disease, or unspecified chronic kidney disease; J98.2 Interstitial emphysema; K76.0 Fatty (change of) liver, not elsewhere classified; N18.9 Chronic kidney disease, unspecified; M54.9 Dorsalgia, unspecified; M25.511 Pain in right shoulder; Z79.82 Long term (current) use of aspirin; Z79.899 Other long term (current) drug therapy; Z68.37 Body mass index [BMI] 37.0-37.9, adult
CPT/HCPCS: 31500; 36415; 36556; 36600; 51702; 70450; 71045; 71250; 80048; 80053; 80061; 80307; 81001; 82550; 82607; 82746; 82805; 82962; 83605; 83735; 83880; 84443; 84484; 85014; 85018; 85025; 85610; 85652; 85730; 86141; 87040; 87070; 87077; 87081; 87086; 87186; 87205; 93005; 93306; 93886; 93970; 94002; 94003; 94640; 95819; 96361; 96365; 96375; 99291; C9113; J0330; J0690; J1450; J1815; J2250; J2270; J2543; J2704; J3480; J3490; J7060; Q9956